=== PATIENT | female | born 1965 | race Caucasian/White ===

== ENCOUNTER 2023-04-12 10:08 | Emergency (ER) | payer BC ==
[~2023-04-12] VITALS: Ht 167.6 cm; Wt 54.0 kg
[2023-04-12 10:22] VITALS: TEMP 98.4; O2SAT 96
[2023-04-12] MEDS ORDERED: KETOROLAC 30MG/ML VIAL IM ONE (10:45)
[2023-04-12 12:00] VITALS: BP 148/64; PULSE 57
[2023-04-12] MEDS ORDERED: HYDROCODONE/ACETAMINOPHEN 7.5/325MG TABLET PO ONE (12:00)
[2023-04-12] MEDS ORDERED: LIDO700A15 TP (12:25)
[2023-04-12] MEDS ORDERED: NAPR-1176 MT (12:25)
== END 2023-04-12 12:39 | disposition home or self-care (01) ==
LOC: ER 10:08
DX: S10.93XA Contusion of unspecified part of neck, initial encounter (principal); X58.XXXA Exposure to other specified factors, initial encounter; Y93.89 Activity, other specified; Y92.89 Other specified places as the place of occurrence of the external cause; Y99.8 Other external cause status
CPT/HCPCS: 96372; 99283; J1885; Z7610 ×2